=== PATIENT | female | born 1970 | race Caucasian/White ===

== ENCOUNTER 2018-06-24 10:49 | Outpatient (CLI) | payer MEDICARE ==
--- NOTE | 2018-06-24 14:03 | MMO ---
BILATERAL DIGITAL SCREENING MAMMOGRAMS: HISTORY: A 47-year-old female who presents for baseline digital screening mammography. Status post bilateral breast augmentation with prior replacement as well. FINDINGS: The breasts are heterogeneously dense, which can obscure small masses. There are typically benign ca lcifications, including some vascular calcifications. No direct or indirect evidence of malignancy. This patient's mammogram is interpreted with the assistance of computer aided detection. IMPRESSION: BI-RADS Category 2-Benign findings. Continued annual follow-up mammograms. POS: NOA
== END 2018-06-24 10:50 | disposition home or self-care (01) ==
LOC: SCSMAMMO 10:49
PROVIDERS: ATTEND Family Medicine
DX: Z12.31 Encounter for screening mammogram for malignant neoplasm of breast (principal)
CPT/HCPCS: 77067